=== PATIENT | male | born 1985 | race Caucasian/White ===

== ENCOUNTER 2020-10-28 20:54 | Emergency (ER) | payer OTHER ==
[~2020-10-28] VITALS: Ht 172.7 cm; Wt 78.0 kg
[2020-10-28 20:58] VITALS: BP 134/94
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
--- NOTE | 2020-10-28 21:10 | NUR ---
CHARGE NURSE TO CALL PD TO REPORT INCIDENT
--- NOTE | 2020-10-28 21:11 | NUR ---
[facility] REPORT MADE TO TALA AT DISPATCH, WILL DO A WELFARE CHECK AT PATIENTS HOME.
== END 2020-10-28 21:26 | disposition left against medical advice (07) ==
LOC: ED 21:12
DX: R51.9 Headache, unspecified (principal); Z53.21 Procedure and treatment not carried out due to patient leaving prior to being seen by health care provider

== ENCOUNTER 2020-10-30 11:57 | Emergency (ER) | payer OTHER ==
--- NOTE | 2020-10-30 12:30 | NUR ---
NIL X1
--- NOTE | 2020-10-30 12:45 | NUR ---
NIL X2
--- NOTE | 2020-10-30 13:05 | NUR ---
NIL X3
== END 2020-10-30 15:04 | disposition left against medical advice (07) ==
LOC: ED 12:15
DX: S01.91XA Laceration without foreign body of unspecified part of head, initial encounter (principal); X58.XXXA Exposure to other specified factors, initial encounter